=== PATIENT | female | born 1935 | race African-American/Black ===

== ENCOUNTER 2019-05-29 19:58 | Emergency (ER) | payer MEDICARE ==
[~2019-05-29] VITALS: Ht 167.6 cm; Wt 91.0 kg
[2019-05-29 20:01] VITALS: BP 138/72
== END 2019-05-29 20:23 | disposition left against medical advice (07) ==
LOC: ER 19:58
DX: Z53.21 Procedure and treatment not carried out due to patient leaving prior to being seen by health care provider (principal)

== ENCOUNTER 2019-08-14 17:30 | Inpatient (IN) | payer MEDICARE, BC ==
[~2019-08-14] VITALS: Ht 162.6 cm; Wt 90.7 kg
[2019-08-14 18:52] LABS: BASOPHILS % 1.2 % (0.0-2.0); EOSINOPHILS % 3.1 % (0.0-5.0); HEMATOCRIT. 39.4 % (36.0-48.0); HEMOGLOBIN. 13.3 g/dL (12.0-16.0); LYMPHOCYTES % 22.7 % (20.0-50.0); MEAN CORPUSCULAR HEMOGLOBIN 29.2 pg (28.0-32.0); MEAN CORPUSCULAR VOLUME 86.4 fL (81.0-99.0); MEAN PLATELET VOLUME 8.3 fl (7.4-10.4); MONOCYTES % 10.2 % (2.0-8.0); NEUTROPHILS % 62.8 % (40.0-76.0); PLATELET 266 x1000/uL (130-400); RED BLOOD CELL COUNT 4.56 mill/uL (4.2-5.4); RED CELL DISTRIBUTION WIDTH 14.5 % (11.6-14.6)
[2019-08-14 18:58] LABS: CHLORIDE 100 mEq/L (98-107)
[2019-08-14] MEDS ORDERED: SODIUM CHLORIDE 0.9% 1,000 ML IV ONE (19:00)
[2019-08-14] MEDS ORDERED: LEVETIRACETAM 500MG PREMIX 100 ML IV ONE (19:00)
[2019-08-14 19:02] LABS: ETHANOL BLOOD < 10 mg/dL
[2019-08-14 19:33] LABS: T4 FREE 0.78 ng/dL (0.76-1.46)
[2019-08-14] MEDS: POTASSIUM CHLORIDE 20MEQ TABLET SR PO NR ×2 (20:19→21:41)
[2019-08-14 21:22] LABS: CLARITY URINE CLEAR (CLEAR); COLOR URINE YELLOW (YELLOW); KETONES URINE NEGATIVE (NEGATIVE); LEUKOCYTE ESTERASE URINE NEGATIVE (NEGATIVE); NITRITE URINE NEGATIVE (NEGATIVE); OCCULT BLOOD URINE NEGATIVE (NEGATIVE); PROTEIN URINE NEGATIVE (NEGATIVE); SPECIFIC GRAVITY URINE 1.014 (1.005-1.030); UROBILINOGEN URINE 0.2 E.U./dL (0.2-1.0)
[2019-08-14 21:33] LABS: CANNABINOID URINE SCREEN NEGATIVE (NEGATIVE); METHADONE URINE SCREEN NEGATIVE (NEGATIVE); OPIATES URINE SCREEN NEGATIVE (NEGATIVE); PHENCYCLIDINE URINE SCREEN NEGATIVE (NEGATIVE)
[2019-08-14 21:34] LABS: *AMPHETAMINES SCREEN URINE NEGATIVE (NEGATIVE); *BARBITURATES SCREEN URINE NEGATIVE (NEGATIVE); *BENZODIAZEPINES SCREEN URINE NEGATIVE (NEGATIVE); *COCAINE SCREEN URINE NEGATIVE (NEGATIVE)
[2019-08-14] MEDS ORDERED: ACETAMINOPHEN 325MG TABLET PO PRN (21:45)
[2019-08-14] MEDS ORDERED: CLONIDINE 0.1MG TABLET PO PRN (21:45)
[2019-08-14] MEDS ORDERED: DOCUSATE SODIUM 100MG CAPSULE PO PRN (21:45)
[2019-08-14] MEDS ORDERED: LORAZEPAM 2MG/ML CPJ IV PRN (21:45)
[2019-08-14] MEDS ORDERED: IPRATROPIUM/ALBUTEROL 0.5-3(2.5)MG/3ML NEB NEB PRN (21:45)
[2019-08-14] MEDS ORDERED: ONDANSETRON HCL 4MG/2ML INJ IV PRN (21:45)
[2019-08-15 00:30] VITALS: BP 141/60
[2019-08-15 01:09] LABS: CREATINE KINASE 85 IU/L (26-192)
[2019-08-15 01:10] LABS: CREATINE KINASE MB FRACTION 1.3 ng/mL (0.5-3.6)
[2019-08-15 04:00] VITALS: BP 114/50
[2019-08-15] MEDS ORDERED: LOSA1TAB40 PO (05:08)
[2019-08-15] MEDS ORDERED: BUPR300T52 PO (05:08)
[2019-08-15] MEDS ORDERED: LEVO50TA PO (05:08)
[2019-08-15] MEDS ORDERED: ESOM40CA53 PO (05:08)
[2019-08-15] MEDS ORDERED: LEVO88TA2 PO (05:08)
[2019-08-15 06:42] LABS: BASOPHILS % 0.6 % (0.0-2.0); EOSINOPHILS % 3.9 % (0.0-5.0); HEMOGLOBIN. 10.9 g/dL (12.0-16.0); LYMPHOCYTES % 23.3 % (20.0-50.0); MEAN CORPUSCULAR HEMOGLOBIN 28.7 pg (28.0-32.0); MEAN CORPUSCULAR VOLUME 86.4 fL (81.0-99.0); MEAN PLATELET VOLUME 8.6 fl (7.4-10.4); MONOCYTES % 11.6 % (2.0-8.0); NEUTROPHILS % 60.6 % (40.0-76.0); PLATELET 217 x1000/uL (130-400); RED BLOOD CELL COUNT 3.82 mill/uL (4.2-5.4); RED CELL DISTRIBUTION WIDTH 14.6 % (11.6-14.6)
[2019-08-15 08:00] VITALS: BP 132/76
[2019-08-15] MEDS: LEVETIRACETAM 500MG TABLET PO SCH ×2 (09:13→22:04)
[2019-08-15] MEDS: HYDROCODONE/ACETAMINOPHEN 5/325MG TABLET PO PRN ×2 (09:14→11:06)
[2019-08-15 09:21] LABS: LDL CHOLESTEROL 85 mg/dL (5-100)
[2019-08-15 09:23] LABS: CREATINE KINASE 80 IU/L (26-192); HDL CHOLESTEROL 73 mg/dL (40-59)
[2019-08-15 09:24] LABS: CREATINE KINASE MB FRACTION 1.2 ng/mL (0.5-3.6)
[2019-08-15 12:13] VITALS: BP 141/62
[2019-08-15 16:01] VITALS: BP 137/68
[2019-08-15] MEDS ORDERED: ESTR0.3T3 MT (19:39)
[2019-08-15] MEDS ORDERED: ESCI10TA MT (19:40)
[2019-08-15] MEDS ORDERED: ASPI-1158 MT (19:41)
[2019-08-15] MEDS ORDERED: P20 MT (19:42)
[2019-08-15] MEDS ORDERED: CHOL200059 MT (19:43)
[2019-08-15 20:00] VITALS: BP 127/71
[2019-08-15 20:47] LABS: *AMPHETAMINES SCREEN URINE NEGATIVE (NEGATIVE); *BARBITURATES SCREEN URINE NEGATIVE (NEGATIVE); *BENZODIAZEPINES SCREEN URINE NEGATIVE (NEGATIVE); *COCAINE SCREEN URINE NEGATIVE (NEGATIVE); METHADONE URINE SCREEN NEGATIVE (NEGATIVE); OPIATES URINE SCREEN NEGATIVE (NEGATIVE)
[2019-08-15 20:48] LABS: CANNABINOID URINE SCREEN NEGATIVE (NEGATIVE); PHENCYCLIDINE URINE SCREEN NEGATIVE (NEGATIVE)
[2019-08-16] VITALS: BP 135/56
[2019-08-16 04:00] VITALS: BP 148/52
[2019-08-16 08:00] VITALS: BP 120/53
[2019-08-16] MEDS: BUPROPION HCL 150MG TABLET XL 24HR PO SCH (08:41)
[2019-08-16] MEDS: LEVOTHYROXINE SODIUM 50MCG TABLET PO SCH (08:41)
[2019-08-16] MEDS: LEVETIRACETAM 500MG TABLET PO SCH ×2 (08:41→20:38)
[2019-08-16] MEDS: LOSARTAN POTASSIUM 100 MG TABLET PO SCH (08:41)
[2019-08-16] MEDS ORDERED: LEVOTHYROXINE SODIUM 88MCG TABLET PO SCH (09:00)
[2019-08-16 12:00] VITALS: BP_SYST 118; BP_SYST 122; BP_DIAS 60; BP_DIAS 68
[2019-08-16 16:00] VITALS: BP_SYST 144; BP_SYST 145; BP_DIAS 61; BP_DIAS 70
[2019-08-16 20:00] VITALS: BP_SYST 149; BP_SYST 184; BP_SYST 186; BP_DIAS 60; BP_DIAS 74
[2019-08-17] VITALS: BP 142/62
[2019-08-17 04:00] VITALS: BP 129/58
[2019-08-17 06:48] LABS: PHOSPHORUS 3.3 mg/dL (2.5-4.9)
[2019-08-17 06:55] LABS: BASOPHILS % 0.7 % (0.0-2.0); EOSINOPHILS % 4.1 % (0.0-5.0); HEMOGLOBIN. 10.9 g/dL (12.0-16.0); LYMPHOCYTES % 25.8 % (20.0-50.0); MEAN CORPUSCULAR HEMOGLOBIN 28.5 pg (28.0-32.0); MEAN CORPUSCULAR VOLUME 86.2 fL (81.0-99.0); MEAN PLATELET VOLUME 8.5 fl (7.4-10.4); MONOCYTES % 12.4 % (2.0-8.0); PLATELET 232 x1000/uL (130-400); RED BLOOD CELL COUNT 3.83 mill/uL (4.2-5.4); RED CELL DISTRIBUTION WIDTH 14.6 % (11.6-14.6)
[2019-08-17 08:00] VITALS: BP 139/49
[2019-08-17] MEDS: BUPROPION HCL 150MG TABLET XL 24HR PO SCH (08:43)
[2019-08-17] MEDS: LEVOTHYROXINE SODIUM 50MCG TABLET PO SCH (08:44)
[2019-08-17] MEDS: LOSARTAN POTASSIUM 100 MG TABLET PO SCH (08:44)
[2019-08-17] MEDS: LEVETIRACETAM 500MG TABLET PO SCH (08:44)
[2019-08-17 09:10] LABS: MICROALBUMIN RANDOM URINE <3.0 ug/mL (Not Estab.)
[2019-08-17 09:10] LABS: IMMUNOGLOBULIN A 398 mg/dL (64-422); IMMUNOGLOBULIN G 1236 mg/dL (700-1600); IMMUNOGLOBULIN M 103 mg/dL (26-217)
[2019-08-17] MEDS ORDERED: HYDROCHLOROTHIAZIDE 12.5MG CAPSULE PO SCH (10:42)
[2019-08-17 12:00] VITALS: BP_SYST 146; BP_SYST 152; BP_SYST 154; BP_DIAS 58; BP_DIAS 61; BP_DIAS 65
[2019-08-17] MEDS ORDERED: KEPP500 PO (15:22)
[2019-08-17 15:35] VITALS: BP 145/71
[2019-08-18] MEDS ORDERED: LOSARTAN POTASSIUM 100 MG TABLET PO SCH (09:00)
[2019-08-19 15:11] LABS: A/G RATIO 0.9 (0.7-1.7); ALPHA-1-GLOBULIN 0.2 g/dL (0.0-0.4); ALPHA-2-GLOBULIN 0.7 g/dL (0.4-1.0); BETA GLOBULIN 1.2 g/dL (0.7-1.3); GAMMA GLOBULINS 1.2 g/dL (0.4-1.8); GLOBULIN TOTAL 3.3 g/dL (2.2-3.9); M-SPIKE Not Observed g/dL (Not Observed); TOTAL PROTEIN SERUM 6.3 g/dL (6.0-8.5)
== END 2019-08-17 16:18 | disposition home or self-care (01) | DRG 100 ==
LOC: ER 17:30 → 7WST 20:34 → ENRESERV 22:47
PROVIDERS: ADMIT Internal Medicine; ATTEND Internal Medicine
PROC: 4A00X4Z Measurement of Central Nervous Electrical Activity, External Approach (ICD-10-PCS; principal; 2019-08-15)
DX: G40.89 Other seizures (principal); N17.0 Acute kidney failure with tubular necrosis; J84.9 Interstitial pulmonary disease, unspecified; D64.9 Anemia, unspecified; E03.9 Hypothyroidism, unspecified; E11.22 Type 2 diabetes mellitus with diabetic chronic kidney disease; E66.9 Obesity, unspecified; E78.00 Pure hypercholesterolemia, unspecified; E78.5 Hyperlipidemia, unspecified; I12.9 Hypertensive chronic kidney disease with stage 1 through stage 4 chronic kidney disease, or unspecified chronic kidney disease; I27.20 Pulmonary hypertension, unspecified; Z96.643 Presence of artificial hip joint, bilateral; M19.90 Unspecified osteoarthritis, unspecified site; I45.10 Unspecified right bundle-branch block; R55 Syncope and collapse; J44.9 Chronic obstructive pulmonary disease, unspecified; N18.3 Chronic kidney disease, stage 3 (moderate); Z86.73 Personal history of transient ischemic attack (TIA), and cerebral infarction without residual deficits; Z90.710 Acquired absence of both cervix and uterus; Z88.8 Allergy status to other drugs, medicaments and biological substances; Z79.899 Other long term (current) drug therapy; Z68.34 Body mass index [BMI] 34.0-34.9, adult
CPT/HCPCS: 36415; 70551; 71045; 76770; 80048; 80053; 80061; 80305; 80320; 81003; 82043; 82550; 82553; 82570; 82784; 82962; 83735; 84100; 84155; 84165; 84300; 84439; 84443; 84484; 85025; 86334; 93005; 93306; 93880; 93970; 96365; 99285; J1953; J7030; G0480

== ENCOUNTER 2020-07-21 03:22 | Inpatient (IN) | payer MEDICARE, BC ==
[~2020-07-21] VITALS: Ht 165.1 cm; Wt 101.6 kg
[~2020-07-21 03:22] MED LIST: ASPI-1406 MT; BUPR300T52 PO; CHOL200059 MT; ESCI10TA MT; ESOM40CA53 PO; ESTR0.3T3 MT; KEPP500 PO; LEVO50TA PO; LOSA1TAB40 PO
[2020-07-21] MEDS ORDERED: ONDANSETRON HCL 4MG/2ML INJ IV ONE (04:15)
[2020-07-21] MEDS ORDERED: MORPHINE SULFATE 4 MG/ML CPJ (NOT FOR IM USE) IV ONE (04:15)
[2020-07-21] MEDS ORDERED: FENTANYL CITRATE/PF 50MCG/ML 2ML VIAL IV ONE (05:45)
[2020-07-21] MEDS ORDERED: SODIUM CHLORIDE 0.9% 1,000 ML IV ONE (05:45)
[2020-07-21 06:21] LABS: BASOPHILS % 1.5 % (0.0-2.0); EOSINOPHILS % 0.1 % (0.0-5.0); HEMATOCRIT. 35.1 % (36.0-48.0); HEMOGLOBIN. 11.8 g/dL (12.0-16.0); LYMPHOCYTES % 8.9 % (20.0-50.0); MEAN CORPUSCULAR HEMOGLOBIN 29.3 pg (28.0-32.0); MEAN PLATELET VOLUME 8.2 fl (7.4-10.4); MONOCYTES % 11.3 % (2.0-8.0); NEUTROPHILS % 78.2 % (40.0-76.0); PLATELET 207 x1000/uL (130-400); RED BLOOD CELL COUNT 4.04 mill/uL (4.2-5.4); RED CELL DISTRIBUTION WIDTH 14.5 % (11.6-14.6)
[2020-07-21 06:30] LABS: CHLORIDE 103 mEq/L (98-107)
[2020-07-21] MEDS ORDERED: DOCUSATE SODIUM 100MG CAPSULE PO PRN (07:00)
[2020-07-21] MEDS ORDERED: GUAIFENESIN 200MG/10ML SUGAR FREE UDC PO PRN (07:00)
[2020-07-21] MEDS ORDERED: ONDANSETRON HCL 4MG/2ML INJ IV PRN (07:00)
[2020-07-21] MEDS ORDERED: MAGNESIUM/ALUMINUM HYDROXIDE/SIMETHICONE 30ML UDC PO PRN (07:00)
[2020-07-21 07:48] LABS: PROTHROMBIN TIME 10.3 sec (9.6-11.0)
[2020-07-21] MEDS: ENOXAPARIN 40MG/0.4ML SYR SUBCUT SCH (09:00)
[2020-07-21 10:27] VITALS: BP 140/70
[2020-07-21 12:00] VITALS: BP 140/70
[2020-07-21] MEDS: HYDROCODONE/ACETAMINOPHEN 5/325MG TABLET PO PRN (13:33)
[2020-07-21] MEDS: BUPROPION HCL 150MG TABLET XL 24HR PO SCH (13:34)
[2020-07-21] MEDS: OMEPRAZOLE 20MG CAPSULE EXTENDED RELEASE PO SCH (13:34)
[2020-07-21] MEDS: LEVETIRACETAM 500MG TABLET PO SCH ×2 (13:34→22:07)
[2020-07-21] MEDS: LEVOTHYROXINE SODIUM 50MCG TABLET PO SCH (13:35)
[2020-07-21] MEDS: CHOLECALCIFEROL (D3) 1000 UNIT TABLET PO SCH (13:35)
[2020-07-21 16:00] VITALS: BP 150/67
[2020-07-21] MEDS: HYDROMORPHONE HCL/PF 2MG/ML CPJ IV PRN (16:28)
[2020-07-21] MEDS ORDERED: DEXTROSE 50% WATER 50ML SYRINGE IV PRN (19:00)
[2020-07-21] MEDS: CLONIDINE 0.1MG TABLET PO PRN (19:01)
[2020-07-21 20:00] VITALS: BP_SYST 132; BP_SYST 153; BP_DIAS 71
[2020-07-21] MEDS: DEXT 5%/0.45% NACL 1000ML 1,000 ML IV SCH (20:50)
[2020-07-22] VITALS: BP 130/63
[2020-07-22] MEDS: ACETAMINOPHEN 325MG TABLET PO PRN (01:06)
[2020-07-22] MEDS: HYDROMORPHONE HCL/PF 2MG/ML CPJ IV PRN ×2 (02:43→18:23)
[2020-07-22 04:00] VITALS: BP 101/53
[2020-07-22 06:33] LABS: CHLORIDE 103 mEq/L (98-107)
[2020-07-22 06:34] LABS: BASOPHILS % 0.3 % (0.0-2.0); LYMPHOCYTES % 10.8 % (20.0-50.0); MEAN CORPUSCULAR HEMOGLOBIN 29.4 pg (28.0-32.0); MEAN CORPUSCULAR VOLUME 88.4 fL (81.0-99.0); MEAN PLATELET VOLUME 8.7 fl (7.4-10.4); MONOCYTES % 11.8 % (2.0-8.0); NEUTROPHILS % 77.1 % (40.0-76.0); PLATELET 166 x1000/uL (130-400); RED BLOOD CELL COUNT 3.74 mill/uL (4.2-5.4)
[2020-07-22] MEDS: LEVOTHYROXINE SODIUM 50MCG TABLET PO SCH (06:35)
[2020-07-22] MEDS: OMEPRAZOLE 20MG CAPSULE EXTENDED RELEASE PO SCH (06:35)
[2020-07-22 08:00] VITALS: BP 104/64
[2020-07-22] MEDS: LEVETIRACETAM 500MG TABLET PO SCH ×2 (08:37→20:21)
[2020-07-22] MEDS: ENOXAPARIN 40MG/0.4ML SYR SUBCUT SCH (08:37)
[2020-07-22] MEDS: CHOLECALCIFEROL (D3) 1000 UNIT TABLET PO SCH (08:37)
[2020-07-22] MEDS: DEXT 5%/0.45% NACL 1000ML 1,000 ML IV SCH (10:10)
[2020-07-22] MEDS: BUPROPION HCL 150MG TABLET XL 24HR PO SCH (10:11)
[2020-07-22] MEDS: SODIUM CHLORIDE 0.9% 1,000 ML IV SCH (10:28)
[2020-07-22 16:00] VITALS: BP 94/44
[2020-07-22 20:00] VITALS: BP 88/42
[2020-07-23] VITALS: BP 99/50
[2020-07-23] MEDS: SODIUM CHLORIDE 0.9% 1,000 ML IV SCH (03:10)
[2020-07-23 04:00] VITALS: BP 128/55
[2020-07-23] MEDS: LEVOTHYROXINE SODIUM 50MCG TABLET PO SCH (05:20)
[2020-07-23 07:11] LABS: BASOPHILS % 0.6 % (0.0-2.0); HEMOGLOBIN. 11.1 g/dL (12.0-16.0); LYMPHOCYTES % 17.1 % (20.0-50.0); MEAN CORPUSCULAR HEMOGLOBIN 29.2 pg (28.0-32.0); MEAN CORPUSCULAR VOLUME 87.1 fL (81.0-99.0); MEAN PLATELET VOLUME 8.8 fl (7.4-10.4); MONOCYTES % 8.7 % (2.0-8.0); NEUTROPHILS % 73.6 % (40.0-76.0); PLATELET 161 x1000/uL (130-400); RED BLOOD CELL COUNT 3.79 mill/uL (4.2-5.4); RED CELL DISTRIBUTION WIDTH 14.7 % (11.6-14.6)
[2020-07-23 07:40] LABS: CHLORIDE 104 mEq/L (98-107)
[2020-07-23 08:00] VITALS: BP 169/57
[2020-07-23] MEDS: FAMOTIDINE 20MG TABLET PO SCH ×2 (09:00→10:33)
[2020-07-23] MEDS: BUPROPION HCL 150MG TABLET XL 24HR PO SCH ×2 (09:00→10:34)
[2020-07-23] MEDS: LEVETIRACETAM 500MG TABLET PO SCH ×3 (09:00→20:28)
[2020-07-23] MEDS: CHOLECALCIFEROL (D3) 1000 UNIT TABLET PO SCH ×2 (09:00→10:34)
[2020-07-23] MEDS: ENOXAPARIN 40MG/0.4ML SYR SUBCUT SCH ×2 (09:00→10:35)
[2020-07-23 09:59] LABS: BG CARBOXYHEMOGLOBIN 0.1 % (0.5-1.5); BG DEOXYHEMOGLOBIN 8.4 % (0.0-5.0); BG HCO3 ACT 21.4 mmol/L (22.0-26.0); BG METHEMOGLOBIN 0.3 % (0.0-1.5); BG OXYGEN SATURATION 91.6 % (92.0-98.5); BG OXYHEMOGLOBIN 91.2 % (94.0-97.0); BG PCO2 35.7 mmHg (35.0-45.0); BG PH 7.395 (7.350-7.450); BG PO2 61.9 mmHg (75.0-100.0); BG SAMPLE SITE RIGHT RADIAL; BG TOTAL HEMOGLOBIN 11.4 g/dL (12.0-18.0); BG VENT MODE NASAL CANNULA
[2020-07-23] MEDS ORDERED: CEFTRIAXONE 1 G PREMIX 50 ML IV SCH (10:30)
[2020-07-23] MEDS: ACETAMINOPHEN 325MG TABLET PO PRN (10:35)
[2020-07-23] MEDS: DEXAMETHASONE 4MG/ML 1ML VIAL IV SCH (11:40)
[2020-07-23] MEDS: HYDROMORPHONE HCL/PF 2MG/ML CPJ IV PRN ×2 (11:41→18:47)
[2020-07-23 12:00] VITALS: BP 106/70
[2020-07-23] MEDS: AZITHROMYCIN 500 MG in DEXT 5% WATER 250 ML IV SCH (13:35)
[2020-07-23] MEDS: CEFTRIAXONE 1,000 MG in DEXTROSE 5% WATER 50 ML IV SCH (13:35)
[2020-07-23 16:00] VITALS: BP 104/44
[2020-07-23 20:00] VITALS: BP 158/77
[2020-07-24] VITALS: BP 128/60
[2020-07-24 04:00] VITALS: BP 148/63
[2020-07-24] MEDS: LEVOTHYROXINE SODIUM 50MCG TABLET PO SCH (06:28)
[2020-07-24] MEDS: SODIUM CHLORIDE 0.9% 1,000 ML IV SCH ×2 (06:33→11:34)
[2020-07-24 08:00] VITALS: BP_SYST 142; BP_SYST 165; BP_DIAS 73; BP_DIAS 74
[2020-07-24] MEDS ORDERED: LIDOCAINE HCL/PF 1% 2ML VIAL ONE (09:00)
[2020-07-24] MEDS ORDERED: ACETAMINOPHEN 650MG/20.3ML UDC PO PRN (10:00)
[2020-07-24] MEDS: ENOXAPARIN 40MG/0.4ML SYR SUBCUT SCH (10:04)
[2020-07-24] MEDS: CLONIDINE 0.1MG TABLET PO PRN (10:05)
[2020-07-24] MEDS: CHOLECALCIFEROL (D3) 1000 UNIT TABLET PO SCH (10:05)
[2020-07-24] MEDS: BUPROPION HCL 150MG TABLET XL 24HR PO SCH (10:05)
[2020-07-24] MEDS: LEVETIRACETAM 500MG TABLET PO SCH ×2 (10:05→22:26)
[2020-07-24] MEDS: HYDROMORPHONE HCL/PF 2MG/ML CPJ IV PRN (10:26)
[2020-07-24] MEDS ORDERED: KETOROLAC 15MG/ML VIAL IV PRN (11:15)
[2020-07-24] MEDS: AZITHROMYCIN 500 MG in DEXT 5% WATER 250 ML IV SCH (11:34)
[2020-07-24] MEDS: FAMOTIDINE 20MG TABLET PO SCH (11:44)
[2020-07-24] MEDS: DEXAMETHASONE 4MG/ML 1ML VIAL IV SCH (11:44)
[2020-07-24 12:00] VITALS: BP 101/60
[2020-07-24] MEDS ORDERED: MORPHINE SULFATE 2 MG/ML CPJ (NOT FOR IM USE) IV PRN (12:00)
[2020-07-24] MEDS: CEFTRIAXONE 1,000 MG in DEXTROSE 5% WATER 50 ML IV SCH (14:03)
[2020-07-24 18:10] LABS: BG BASE EXCESS -3.1 mmol/L (-2.0-2.0); BG CARBOXYHEMOGLOBIN 0.4 % (0.5-1.5); BG DEOXYHEMOGLOBIN 25.4 % (0.0-5.0); BG FRACTION INSPIRED OXYGEN 100; BG HCO3 ACT 22.8 mmol/L (22.0-26.0); BG METHEMOGLOBIN 0.2 % (0.0-1.5); BG OXYGEN SATURATION 74.4 % (92.0-98.5); BG PCO2 43.9 mmHg (35.0-45.0); BG PH 7.333 (7.350-7.450); BG SAMPLE SITE RIGHT RADIAL; BG TOTAL HEMOGLOBIN 12.9 g/dL (12.0-18.0); BG VENT MODE MASK - NRB
[2020-07-24 18:55] VITALS: BP 146/78
[2020-07-24 19:03] LABS: C REACTIVE PROTEIN QUANT > 190.0 mg/L (0.0-3.0)
[2020-07-24 20:00] VITALS: BP 149/69
[2020-07-25] VITALS (7 sets, daily range): BP systolic 94–168; BP diastolic 57–82
[2020-07-25] MEDS: SODIUM CHLORIDE 0.9% 1,000 ML IV SCH ×2 (05:10→21:50)
[2020-07-25] MEDS: LEVOTHYROXINE SODIUM 50MCG TABLET PO SCH (08:46)
[2020-07-25] MEDS: BUPROPION HCL 150MG TABLET XL 24HR PO SCH (08:46)
[2020-07-25] MEDS: DEXAMETHASONE 4MG/ML 1ML VIAL IV SCH (08:46)
[2020-07-25] MEDS: CHOLECALCIFEROL (D3) 1000 UNIT TABLET PO SCH (08:46)
[2020-07-25] MEDS: ENOXAPARIN 40MG/0.4ML SYR SUBCUT SCH (08:46)
[2020-07-25] MEDS: LEVETIRACETAM 500MG TABLET PO SCH ×2 (08:46→21:00)
[2020-07-25] MEDS: FAMOTIDINE 20MG TABLET PO SCH (09:04)
[2020-07-25] MEDS: AZITHROMYCIN 500 MG in DEXT 5% WATER 250 ML IV SCH (10:44)
[2020-07-25] MEDS: HYDROCODONE/ACETAMINOPHEN 5/325MG TABLET PO PRN (10:45)
[2020-07-25] MEDS ORDERED: HYDROCODONE/ACETAMINOPHEN 5/325MG TABLET PO PRN ×2 (11:45→15:00)
[2020-07-25] MEDS: CEFTRIAXONE 1,000 MG in DEXTROSE 5% WATER 50 ML IV SCH (12:58)
[2020-07-25] MEDS: CLONIDINE 0.1MG TABLET PO PRN (13:42)
[2020-07-25] MEDS: ACETAMINOPHEN 325MG TABLET PO PRN (15:57)
[2020-07-25] MEDS ORDERED: LORAZEPAM 2MG/ML CPJ IV NR (21:41)
[2020-07-25] MEDS ORDERED: DEXAMETHASONE 10 MG/ML VIAL IV SCH (21:44)
[2020-07-25 23:05] LABS: BG BASE EXCESS -3.2 mmol/L (-2.0-2.0); BG CARBOXYHEMOGLOBIN 0.3 % (0.5-1.5); BG FRACTION INSPIRED OXYGEN 100; BG HCO3 ACT 20.8 mmol/L (22.0-26.0); BG METHEMOGLOBIN 0.2 % (0.0-1.5); BG OXYHEMOGLOBIN 95.5 % (94.0-97.0); BG PCO2 33.9 mmHg (35.0-45.0); BG PH 7.406 (7.350-7.450); BG PO2 87.6 mmHg (75.0-100.0); BG TOTAL HEMOGLOBIN 11.8 g/dL (12.0-18.0); BG TOTAL RESPIRATORY RATE 28 b/min; BG VENT MODE VENT - AC
[2020-07-25] MEDS: MIDAZOLAM HCL 100 MG in DEXT 5% WATER 80 ML IV PRN (23:24)
[2020-07-25] MEDS: FENTANYL CITRATE/PF 2,500 MCG in SODIUM CHLORIDE 0.9% 200 ML IV PRN (23:25)
[2020-07-26] VITALS (44 sets, daily range): BP systolic 111–165; BP diastolic 65–92
[2020-07-26 06:22] LABS: CHLORIDE 108 mEq/L (98-107)
[2020-07-26] MEDS: LEVOTHYROXINE SODIUM 50MCG TABLET PO SCH (07:50)
[2020-07-26] MEDS ORDERED: LIDOCAINE HCL 1% 20ML VIAL (Pyxis) INJ ONE (07:54)
[2020-07-26] MEDS ORDERED: SODIUM BICARBONATE 4% (2.4MEQ) 5ML VIAL IV ONE (07:54)
[2020-07-26 08:46] LABS: HEMATOCRIT. 37.9 % (36.0-48.0); HEMOGLOBIN. 12.1 g/dL (12.0-16.0); MEAN CORPUSCULAR HEMOGLOBIN 28.3 pg (28.0-32.0); MEAN CORPUSCULAR VOLUME 88.5 fL (81.0-99.0); MEAN PLATELET VOLUME 9.2 fl (7.4-10.4); PLATELET 197 x1000/uL (130-400); RED BLOOD CELL COUNT 4.28 mill/uL (4.2-5.4); RED CELL DISTRIBUTION WIDTH 14.8 % (11.6-14.6)
[2020-07-26] MEDS: BUPROPION HCL 150MG TABLET XL 24HR PO SCH (09:00)
[2020-07-26] MEDS: DEXAMETHASONE 4MG/ML 1ML VIAL IV SCH (09:00)
[2020-07-26] MEDS: ENOXAPARIN 40MG/0.4ML SYR SUBCUT SCH (09:00)
[2020-07-26 09:45] LABS: PLATELET ESTIMATE NORMAL
[2020-07-26] MEDS: LEVETIRACETAM 500MG TABLET PO SCH ×2 (09:55→21:57)
[2020-07-26] MEDS: FAMOTIDINE 20MG TABLET PO SCH (09:55)
[2020-07-26] MEDS: CHOLECALCIFEROL (D3) 1000 UNIT TABLET PO SCH (09:55)
[2020-07-26 10:32] LABS: BG BASE EXCESS 2.8 mmol/L (-2.0-2.0); BG CARBOXYHEMOGLOBIN 0.3 % (0.5-1.5); BG DEOXYHEMOGLOBIN 1.6 % (0.0-5.0); BG FRACTION INSPIRED OXYGEN 100; BG HCO3 ACT 25.5 mmol/L (22.0-26.0); BG METHEMOGLOBIN 0.3 % (0.0-1.5); BG OXYGEN SATURATION 98.4 % (92.0-98.5); BG OXYHEMOGLOBIN 97.8 % (94.0-97.0); BG PCO2 32.3 mmHg (35.0-45.0); BG PH 7.515 (7.350-7.450); BG PO2 134.8 mmHg (75.0-100.0); BG SAMPLE SITE RIGHT RADIAL; BG TOTAL HEMOGLOBIN 10.8 g/dL (12.0-18.0); BG VENT MODE VENT - AC
[2020-07-26] MEDS: AZITHROMYCIN 500 MG in DEXT 5% WATER 250 ML IV SCH (14:06)
[2020-07-26] MEDS: PANTOPRAZOLE SODIUM 40 MG/VIAL IV SCH (14:06)
[2020-07-26] MEDS: CEFTRIAXONE 1,000 MG in DEXTROSE 5% WATER 50 ML IV SCH (14:06)
[2020-07-26] MEDS ORDERED: DEXTROSE 50% WATER 50ML SYRINGE IV PRN (16:45)
[2020-07-26] MEDS: BLOOD SUGAR DIAGNOSTIC STRIP TEST SCH (17:18)
[2020-07-26] MEDS: INSULIN LISPRO 100 UNITS/ML SUBCUT SCH ×2 (17:39→21:58)
[2020-07-26] MEDS: ACETAMINOPHEN 325MG TABLET PO PRN (21:57)
[2020-07-27] VITALS (79 sets, daily range): BP systolic 127–170; BP diastolic 66–104
[2020-07-27] MEDS: BLOOD SUGAR DIAGNOSTIC STRIP TEST SCH ×4 (01:25→17:50)
[2020-07-27 06:04] LABS: HEMATOCRIT. 33.1 % (36.0-48.0); MEAN CORPUSCULAR HEMOGLOBIN 28.7 pg (28.0-32.0); MEAN CORPUSCULAR VOLUME 86.6 fL (81.0-99.0); MEAN PLATELET VOLUME 9.1 fl (7.4-10.4); PLATELET 190 x1000/uL (130-400); RED BLOOD CELL COUNT 3.82 mill/uL (4.2-5.4); RED CELL DISTRIBUTION WIDTH 14.8 % (11.6-14.6)
[2020-07-27 06:17] LABS: CHLORIDE 110 mEq/L (98-107)
[2020-07-27 09:10] LABS: BG BASE EXCESS 3.2 mmol/L (-2.0-2.0); BG CARBOXYHEMOGLOBIN 0.3 % (0.5-1.5); BG DEOXYHEMOGLOBIN 5.3 % (0.0-5.0); BG FRACTION INSPIRED OXYGEN 80; BG HCO3 ACT 26.3 mmol/L (22.0-26.0); BG METHEMOGLOBIN 0.2 % (0.0-1.5); BG OXYGEN SATURATION 94.7 % (92.0-98.5); BG OXYHEMOGLOBIN 94.2 % (94.0-97.0); BG PCO2 34.9 mmHg (35.0-45.0); BG PH 7.495 (7.350-7.450); BG PO2 74.7 mmHg (75.0-100.0); BG SAMPLE SITE RIGHT RADIAL; BG TOTAL HEMOGLOBIN 11.6 g/dL (12.0-18.0); BG VENT MODE VENT - AC
[2020-07-27] MEDS: FAMOTIDINE 20MG TABLET PO SCH (09:28)
[2020-07-27] MEDS: LEVETIRACETAM 500MG TABLET PO SCH ×2 (09:28→21:50)
[2020-07-27] MEDS: BUPROPION HCL 150MG TABLET XL 24HR PO SCH (09:28)
[2020-07-27] MEDS: PANTOPRAZOLE SODIUM 40 MG/VIAL IV SCH (09:28)
[2020-07-27] MEDS: CHOLECALCIFEROL (D3) 1000 UNIT TABLET PO SCH (09:28)
[2020-07-27] MEDS: DEXAMETHASONE 4MG/ML 1ML VIAL IV SCH (09:28)
[2020-07-27] MEDS: LEVOTHYROXINE SODIUM 50MCG TABLET PO SCH (09:28)
[2020-07-27] MEDS: ENOXAPARIN 40MG/0.4ML SYR SUBCUT SCH (09:28)
[2020-07-27] MEDS: AZITHROMYCIN 500 MG in DEXT 5% WATER 250 ML IV SCH (11:30)
[2020-07-27] MEDS: CEFTRIAXONE 1,000 MG in DEXTROSE 5% WATER 50 ML IV SCH (11:30)
[2020-07-27] MEDS: INSULIN LISPRO 100 UNITS/ML SUBCUT SCH ×2 (12:33→17:51)
[2020-07-27 18:58] LABS: PLATELET ESTIMATE NORMAL
[2020-07-28] VITALS (93 sets, daily range): BP systolic 101–170; BP diastolic 51–95
[2020-07-28] MEDS: BLOOD SUGAR DIAGNOSTIC STRIP TEST SCH ×5 (00:11→23:55)
[2020-07-28] MEDS: INSULIN LISPRO 100 UNITS/ML SUBCUT SCH ×4 (00:15→18:07)
[2020-07-28 06:09] LABS: HEMATOCRIT. 30.1 % (36.0-48.0); HEMOGLOBIN. 9.9 g/dL (12.0-16.0); MEAN CORPUSCULAR HEMOGLOBIN 28.8 pg (28.0-32.0); MEAN CORPUSCULAR VOLUME 87.2 fL (81.0-99.0); MEAN PLATELET VOLUME 8.5 fl (7.4-10.4); PLATELET 181 x1000/uL (130-400); RED BLOOD CELL COUNT 3.45 mill/uL (4.2-5.4); RED CELL DISTRIBUTION WIDTH 14.7 % (11.6-14.6)
[2020-07-28 09:11] LABS: BG BASE EXCESS 2.2 mmol/L (-2.0-2.0); BG CARBOXYHEMOGLOBIN 0.3 % (0.5-1.5); BG DEOXYHEMOGLOBIN 2.1 % (0.0-5.0); BG FRACTION INSPIRED OXYGEN 100; BG METHEMOGLOBIN 0.3 % (0.0-1.5); BG OXYGEN SATURATION 97.9 % (92.0-98.5); BG OXYHEMOGLOBIN 97.3 % (94.0-97.0); BG PCO2 37.6 mmHg (35.0-45.0); BG PH 7.458 (7.350-7.450); BG PO2 113.8 mmHg (75.0-100.0); BG SAMPLE SITE RIGHT RADIAL; BG VENT MODE VENT - AC
[2020-07-28] MEDS: DEXAMETHASONE 4MG/ML 1ML VIAL IV SCH (09:16)
[2020-07-28] MEDS: LEVOTHYROXINE SODIUM 50MCG TABLET PO SCH (09:16)
[2020-07-28] MEDS: FAMOTIDINE 20MG TABLET PO SCH (09:16)
[2020-07-28] MEDS: LEVETIRACETAM 500MG TABLET PO SCH ×2 (09:16→20:51)
[2020-07-28] MEDS: CHOLECALCIFEROL (D3) 1000 UNIT TABLET PO SCH (09:16)
[2020-07-28] MEDS: ENOXAPARIN 40MG/0.4ML SYR SUBCUT SCH (09:17)
[2020-07-28] MEDS: FENTANYL CITRATE/PF 2,500 MCG in SODIUM CHLORIDE 0.9% 200 ML IV PRN (09:27)
[2020-07-28 20:41] LABS: PLATELET ESTIMATE NORMAL
[2020-07-29] VITALS (76 sets, daily range): BP systolic 131–168; BP diastolic 65–88
[2020-07-29] MEDS: INSULIN LISPRO 100 UNITS/ML SUBCUT SCH ×4 (00:10→17:57)
[2020-07-29] MEDS: BLOOD SUGAR DIAGNOSTIC STRIP TEST SCH ×4 (05:37→23:43)
[2020-07-29 06:13] LABS: HEMATOCRIT. 32.4 % (36.0-48.0); HEMOGLOBIN. 10.6 g/dL (12.0-16.0); MEAN CORPUSCULAR HEMOGLOBIN 28.6 pg (28.0-32.0); MEAN CORPUSCULAR VOLUME 87.6 fL (81.0-99.0); MEAN PLATELET VOLUME 8.2 fl (7.4-10.4); PLATELET 191 x1000/uL (130-400); RED CELL DISTRIBUTION WIDTH 14.8 % (11.6-14.6)
[2020-07-29 06:16] LABS: CHLORIDE 112 mEq/L (98-107)
[2020-07-29] MEDS: FENTANYL CITRATE/PF 2,500 MCG in SODIUM CHLORIDE 0.9% 200 ML IV PRN (07:30)
[2020-07-29 08:22] LABS: BG BASE EXCESS 1.5 mmol/L (-2.0-2.0); BG CARBOXYHEMOGLOBIN 0.3 % (0.5-1.5); BG DEOXYHEMOGLOBIN 8.5 % (0.0-5.0); BG FRACTION INSPIRED OXYGEN 90; BG HCO3 ACT 25.5 mmol/L (22.0-26.0); BG METHEMOGLOBIN 0.3 % (0.0-1.5); BG OXYGEN SATURATION 91.4 % (92.0-98.5); BG OXYHEMOGLOBIN 90.9 % (94.0-97.0); BG PCO2 38.3 mmHg (35.0-45.0); BG PH 7.442 (7.350-7.450); BG PO2 63.5 mmHg (75.0-100.0); BG SAMPLE SITE RIGHT RADIAL; BG TOTAL HEMOGLOBIN 11.2 g/dL (12.0-18.0); BG VENT MODE VENT - AC
[2020-07-29] MEDS: DEXAMETHASONE 4MG/ML 1ML VIAL IV SCH (08:27)
[2020-07-29] MEDS: LEVOTHYROXINE SODIUM 50MCG TABLET PO SCH (08:27)
[2020-07-29] MEDS: CHOLECALCIFEROL (D3) 1000 UNIT TABLET PO SCH (08:27)
[2020-07-29] MEDS: FAMOTIDINE 20MG TABLET PO SCH (08:27)
[2020-07-29] MEDS: LEVETIRACETAM 500MG TABLET PO SCH ×2 (08:27→20:50)
[2020-07-29] MEDS: ENOXAPARIN 40MG/0.4ML SYR SUBCUT SCH (08:28)
[2020-07-29 11:56] LABS: PLATELET ESTIMATE NORMAL
[2020-07-30] VITALS (81 sets, daily range): BP systolic 75–195; BP diastolic 41–154
[2020-07-30] MEDS: INSULIN LISPRO 100 UNITS/ML SUBCUT SCH ×4 (00:50→17:38)
[2020-07-30] MEDS: FENTANYL CITRATE/PF 2,500 MCG in SODIUM CHLORIDE 0.9% 200 ML IV PRN ×2 (02:39→15:12)
[2020-07-30 06:07] LABS: HEMATOCRIT. 33.8 % (36.0-48.0); MEAN CORPUSCULAR HEMOGLOBIN 28.6 pg (28.0-32.0); MEAN CORPUSCULAR VOLUME 87.8 fL (81.0-99.0); MEAN PLATELET VOLUME 8.4 fl (7.4-10.4); PLATELET 186 x1000/uL (130-400); RED BLOOD CELL COUNT 3.85 mill/uL (4.2-5.4); RED CELL DISTRIBUTION WIDTH 14.8 % (11.6-14.6)
[2020-07-30] MEDS: BLOOD SUGAR DIAGNOSTIC STRIP TEST SCH ×3 (06:24→17:37)
[2020-07-30] MEDS: LEVOTHYROXINE SODIUM 50MCG TABLET PO SCH (07:59)
[2020-07-30] MEDS: FAMOTIDINE 20MG TABLET PO SCH (08:01)
[2020-07-30] MEDS: LEVETIRACETAM 500MG TABLET PO SCH (08:01)
[2020-07-30] MEDS: CHOLECALCIFEROL (D3) 1000 UNIT TABLET PO SCH (08:01)
[2020-07-30] MEDS: DEXAMETHASONE 4MG/ML 1ML VIAL IV SCH (08:02)
[2020-07-30] MEDS: ENOXAPARIN 40MG/0.4ML SYR SUBCUT SCH (08:02)
[2020-07-30 08:14] LABS: PLATELET ESTIMATE NORMAL
[2020-07-30 08:43] LABS: BG BASE EXCESS 1.3 mmol/L (-2.0-2.0); BG CARBOXYHEMOGLOBIN 0.3 % (0.5-1.5); BG DEOXYHEMOGLOBIN 1.2 % (0.0-5.0); BG FRACTION INSPIRED OXYGEN 90; BG METHEMOGLOBIN 0.3 % (0.0-1.5); BG OXYGEN SATURATION 98.8 % (92.0-98.5); BG OXYHEMOGLOBIN 98.2 % (94.0-97.0); BG PCO2 41.6 mmHg (35.0-45.0); BG PH 7.414 (7.350-7.450); BG PO2 171.1 mmHg (75.0-100.0); BG SAMPLE SITE RIGHT RADIAL; BG TOTAL HEMOGLOBIN 11.3 g/dL (12.0-18.0); BG VENT MODE VENT - AC
[2020-07-30] MEDS: LORAZEPAM 2MG/ML CPJ IV PRN ×2 (10:51→15:12)
[2020-07-30] MEDS ORDERED: PHENYLEPHRINE 100 MG in DEXT 5% WATER 240 ML IV PRN (11:45)
[2020-07-30] MEDS: MIDAZOLAM HCL 100 MG in DEXT 5% WATER 80 ML IV PRN (15:36)
[2020-07-30] MEDS ORDERED: LEVETIRACETAM 500MG TABLET PO SCH (21:00)
[2020-07-30] MEDS: LEVETIRACETAM 1,000 MG in SODIUM CHLORIDE 0.9% 100 ML IV SCH (21:11)
[2020-07-30] MEDS: ACETAMINOPHEN 325MG TABLET PO PRN (22:17)
[2020-07-31] VITALS (95 sets, daily range): BP systolic 68–166; BP diastolic 34–98
[2020-07-31 01:07] LABS: BG BASE EXCESS -0.8 mmol/L (-2.0-2.0); BG CARBOXYHEMOGLOBIN 0.2 % (0.5-1.5); BG FRACTION INSPIRED OXYGEN 100; BG HCO3 ACT 24.8 mmol/L (22.0-26.0); BG METHEMOGLOBIN 0.3 % (0.0-1.5); BG OXYGEN SATURATION 81.9 % (92.0-98.5); BG OXYHEMOGLOBIN 81.5 % (94.0-97.0); BG PCO2 45.2 mmHg (35.0-45.0); BG PH 7.358 (7.350-7.450); BG PO2 48.9 mmHg (75.0-100.0); BG SAMPLE SITE LEFT RADIAL; BG TOTAL HEMOGLOBIN 11.4 g/dL (12.0-18.0); BG VENT MODE VENT - AC
[2020-07-31] MEDS ORDERED: MIDAZOLAM HCL 100 MG in DEXT 5% WATER 80 ML IV PRN (04:00)
[2020-07-31] MEDS ORDERED: FENTANYL CITRATE/PF 2,500 MCG in SODIUM CHLORIDE 0.9% 200 ML IV PRN (04:00)
[2020-07-31] MEDS: FENTANYL CITRATE/PF 2,500 MCG in SODIUM CHLORIDE 0.9% 200 ML IV PRN (04:43)
[2020-07-31] MEDS: MIDAZOLAM HCL 100 MG in DEXT 5% WATER 80 ML IV PRN (04:46)
[2020-07-31] MEDS ORDERED: NOREPINEPHRINE 32 MG in DEXT 5% WATER 218 ML IV PRN (06:00)
[2020-07-31] MEDS: INSULIN LISPRO 100 UNITS/ML SUBCUT SCH ×4 (06:00→17:21)
[2020-07-31] MEDS: BLOOD SUGAR DIAGNOSTIC STRIP TEST SCH ×4 (06:00→17:22)
[2020-07-31 06:27] LABS: HEMATOCRIT. 32.4 % (36.0-48.0); HEMOGLOBIN. 10.4 g/dL (12.0-16.0); MEAN CORPUSCULAR HEMOGLOBIN 28.4 pg (28.0-32.0); MEAN CORPUSCULAR VOLUME 88.9 fL (81.0-99.0); MEAN PLATELET VOLUME 8.8 fl (7.4-10.4); PLATELET 172 x1000/uL (130-400); RED BLOOD CELL COUNT 3.65 mill/uL (4.2-5.4); RED CELL DISTRIBUTION WIDTH 15.1 % (11.6-14.6)
[2020-07-31] MEDS: FAMOTIDINE 20MG TABLET PO SCH (09:27)
[2020-07-31] MEDS: LEVOTHYROXINE SODIUM 50MCG TABLET PO SCH (09:27)
[2020-07-31] MEDS: CHOLECALCIFEROL (D3) 1000 UNIT TABLET PO SCH (09:27)
[2020-07-31] MEDS: LEVETIRACETAM 1,000 MG in SODIUM CHLORIDE 0.9% 100 ML IV SCH (09:28)
[2020-07-31 10:45] LABS: BG BASE EXCESS -2.2 mmol/L (-2.0-2.0); BG CARBOXYHEMOGLOBIN 0.1 % (0.5-1.5); BG DEOXYHEMOGLOBIN 6.7 % (0.0-5.0); BG HCO3 ACT 23.5 mmol/L (22.0-26.0); BG METHEMOGLOBIN 0.2 % (0.0-1.5); BG OXYGEN SATURATION 93.3 % (92.0-98.5); BG PCO2 44.3 mmHg (35.0-45.0); BG PH 7.343 (7.350-7.450); BG PO2 73.8 mmHg (75.0-100.0); BG SAMPLE SITE RIGHT RADIAL; BG VENT MODE VENT - AC
[2020-07-31] MEDS: SODIUM CHLORIDE 0.45% 1,000 ML IV SCH (11:39)
[2020-07-31] MEDS: ENOXAPARIN 40MG/0.4ML SYR SUBCUT SCH (11:39)
[2020-07-31] MEDS ORDERED: SODIUM POLYSTYRENE SULFONATE 15 G/60 ML BOT PO SCH (12:00)
[2020-07-31 13:45] LABS: NUCLEATED RED BLOOD CELLS 1 /100 WBC; PLATELET ESTIMATE NORMAL
[2020-07-31] MEDS: DEXAMETHASONE 4MG/ML 1ML VIAL IV SCH (15:43)
[2020-07-31] MEDS: LORAZEPAM 2MG/ML CPJ IV PRN ×3 (17:25→22:30)
[2020-07-31] MEDS: LEVETIRACETAM 1000MG PREMIX 100 ML IV SCH (22:44)
[2020-08-01] VITALS (98 sets, daily range): BP systolic 90–187; BP diastolic 49–100
[2020-08-01] MEDS: INSULIN LISPRO 100 UNITS/ML SUBCUT SCH ×5 (01:18→17:28)
[2020-08-01] MEDS: MIDAZOLAM HCL 100 MG in DEXT 5% WATER 80 ML IV PRN (01:52)
[2020-08-01] MEDS: FENTANYL CITRATE/PF 2,500 MCG in SODIUM CHLORIDE 0.9% 200 ML IV PRN (01:52)
[2020-08-01] MEDS: SODIUM CHLORIDE 0.45% 1,000 ML IV SCH ×2 (03:23→22:38)
[2020-08-01] MEDS: BLOOD SUGAR DIAGNOSTIC STRIP TEST SCH ×4 (06:15→17:15)
[2020-08-01] MEDS: LEVOTHYROXINE SODIUM 50MCG TABLET PO SCH (08:43)
[2020-08-01] MEDS: CHOLECALCIFEROL (D3) 1000 UNIT TABLET PO SCH (08:43)
[2020-08-01] MEDS: DEXAMETHASONE 4MG/ML 1ML VIAL IV SCH (08:43)
[2020-08-01] MEDS: FAMOTIDINE 20MG TABLET PO SCH (08:43)
[2020-08-01] MEDS ORDERED: ENOXAPARIN 30MG/0.3ML SYR SUBCUT SCH (09:00)
[2020-08-01 10:16] LABS: BG BASE EXCESS -3.3 mmol/L (-2.0-2.0); BG CARBOXYHEMOGLOBIN 0.3 % (0.5-1.5); BG DEOXYHEMOGLOBIN 7.2 % (0.0-5.0); BG FRACTION INSPIRED OXYGEN 100; BG HCO3 ACT 22.5 mmol/L (22.0-26.0); BG METHEMOGLOBIN 0.1 % (0.0-1.5); BG OXYGEN SATURATION 92.8 % (92.0-98.5); BG OXYHEMOGLOBIN 92.4 % (94.0-97.0); BG PCO2 43.4 mmHg (35.0-45.0); BG PH 7.332 (7.350-7.450); BG PO2 72.5 mmHg (75.0-100.0); BG SAMPLE SITE LEFT RADIAL; BG TOTAL HEMOGLOBIN 10.4 g/dL (12.0-18.0); BG TOTAL RESPIRATORY RATE 22 b/min; BG VENT MODE VENT - AC
[2020-08-01] MEDS: LEVETIRACETAM 1000MG PREMIX 100 ML IV SCH ×2 (12:10→22:38)
[2020-08-01] MEDS: CLONIDINE 0.1MG TABLET PO PRN (17:55)
[2020-08-02] VITALS (81 sets, daily range): BP systolic 135–177; BP diastolic 68–96
[2020-08-02] MEDS: CLONIDINE 0.1MG TABLET PO PRN ×2 (00:50→05:52)
[2020-08-02] MEDS: INSULIN LISPRO 100 UNITS/ML SUBCUT SCH ×4 (00:51→16:55)
[2020-08-02] MEDS: FENTANYL CITRATE/PF 2,500 MCG in SODIUM CHLORIDE 0.9% 200 ML IV PRN (00:54)
[2020-08-02] MEDS: BLOOD SUGAR DIAGNOSTIC STRIP TEST SCH ×4 (05:52→16:39)
[2020-08-02 08:26] LABS: BG BASE EXCESS -0.7 mmol/L (-2.0-2.0); BG CARBOXYHEMOGLOBIN 0.3 % (0.5-1.5); BG DEOXYHEMOGLOBIN 3.2 % (0.0-5.0); BG FRACTION INSPIRED OXYGEN 100; BG HCO3 ACT 24.6 mmol/L (22.0-26.0); BG METHEMOGLOBIN 0.3 % (0.0-1.5); BG OXYGEN SATURATION 96.8 % (92.0-98.5); BG OXYHEMOGLOBIN 96.2 % (94.0-97.0); BG PCO2 43.6 mmHg (35.0-45.0); BG PO2 96.6 mmHg (75.0-100.0); BG SAMPLE SITE RIGHT RADIAL; BG VENT MODE VENT - AC
[2020-08-02] MEDS: FAMOTIDINE 20MG TABLET PO SCH (08:50)
[2020-08-02] MEDS: CHOLECALCIFEROL (D3) 1000 UNIT TABLET PO SCH (08:50)
[2020-08-02] MEDS: ENOXAPARIN 40MG/0.4ML SYR SUBCUT SCH (08:51)
[2020-08-02] MEDS: DEXAMETHASONE 4MG/ML 1ML VIAL IV SCH (08:51)
[2020-08-02] MEDS: LEVOTHYROXINE SODIUM 50MCG TABLET PO SCH (08:53)
[2020-08-02] MEDS: LEVETIRACETAM 1000MG PREMIX 100 ML IV SCH ×2 (11:16→23:54)
[2020-08-02] MEDS: METOCLOPRAMIDE HCL 10MG/2ML VIAL IV SCH ×3 (11:16→23:54)
[2020-08-02] MEDS: SODIUM CHLORIDE 0.45% 1,000 ML IV SCH (12:36)
[2020-08-03] VITALS (83 sets, daily range): BP systolic 94–188; BP diastolic 57–96
[2020-08-03] MEDS: CLONIDINE 0.1MG TABLET PO PRN ×2 (00:04→06:02)
[2020-08-03] MEDS: INSULIN LISPRO 100 UNITS/ML SUBCUT SCH ×4 (00:05→17:26)
[2020-08-03] MEDS: BLOOD SUGAR DIAGNOSTIC STRIP TEST SCH ×4 (06:00→17:26)
[2020-08-03] MEDS: SODIUM CHLORIDE 0.45% 1,000 ML IV SCH (06:02)
[2020-08-03] MEDS: METOCLOPRAMIDE HCL 10MG/2ML VIAL IV SCH ×3 (06:02→19:02)
[2020-08-03 06:03] LABS: HEMATOCRIT. 27.3 % (36.0-48.0); HEMOGLOBIN. 9.6 g/dL (12.0-16.0); MEAN CORPUSCULAR HEMOGLOBIN 31.5 pg (28.0-32.0); MEAN CORPUSCULAR VOLUME 90.1 fL (81.0-99.0); MEAN PLATELET VOLUME 9.2 fl (7.4-10.4); PLATELET 253 x1000/uL (130-400); RED BLOOD CELL COUNT 3.03 mill/uL (4.2-5.4); RED CELL DISTRIBUTION WIDTH 15.1 % (11.6-14.6)
[2020-08-03 08:37] LABS: BG BASE EXCESS -3.9 mmol/L (-2.0-2.0); BG CARBOXYHEMOGLOBIN 0.3 % (0.5-1.5); BG DEOXYHEMOGLOBIN 5.2 % (0.0-5.0); BG FRACTION INSPIRED OXYGEN 100; BG HCO3 ACT 21.3 mmol/L (22.0-26.0); BG METHEMOGLOBIN 0.3 % (0.0-1.5); BG OXYGEN SATURATION 94.8 % (92.0-98.5); BG OXYHEMOGLOBIN 94.2 % (94.0-97.0); BG PCO2 39.1 mmHg (35.0-45.0); BG PH 7.354 (7.350-7.450); BG PO2 83.9 mmHg (75.0-100.0); BG SAMPLE SITE RIGHT RADIAL; BG TOTAL HEMOGLOBIN 10.9 g/dL (12.0-18.0); BG VENT MODE VENT - AC
[2020-08-03] MEDS: ENOXAPARIN 40MG/0.4ML SYR SUBCUT SCH (08:54)
[2020-08-03] MEDS: LEVOTHYROXINE SODIUM 50MCG TABLET PO SCH (08:54)
[2020-08-03] MEDS: CHOLECALCIFEROL (D3) 1000 UNIT TABLET PO SCH (08:54)
[2020-08-03] MEDS: FAMOTIDINE 20MG TABLET PO SCH (08:54)
[2020-08-03 09:18] LABS: PLATELET ESTIMATE NORMAL
[2020-08-03] MEDS: FENTANYL CITRATE/PF 2,500 MCG in SODIUM CHLORIDE 0.9% 200 ML IV PRN (09:54)
[2020-08-03] MEDS: LEVETIRACETAM 1000MG PREMIX 100 ML IV SCH (11:22)
[2020-08-03] MEDS: LORAZEPAM 2MG/ML CPJ IV PRN ×2 (11:23→16:08)
[2020-08-03 13:38] LABS: CHLORIDE 113 mEq/L (98-107)
[2020-08-03] MEDS ORDERED: SODIUM POLYSTYRENE SULFONATE 15 G/60 ML BOT PO SCH (16:00)
[2020-08-03] MEDS ORDERED: SODIUM CHLORIDE 0.9% IV SCH (21:00)
[2020-08-03] MEDS ORDERED: LEVETIRACETAM IV SCH (21:00)
[2020-08-04] MEDS ORDERED: LEVETIRACETAM 1,250 MG in SODIUM CHLORIDE 0.9% 100 ML IV SCH (09:00)
== END 2020-08-03 20:46 | disposition expired | DRG 870 ==
LOC: ER 04:02 → 6EST 06:19 → ENRESERV 09:46 → 8WST 21:30 → CVICU 07-25 22:15
PROVIDERS: ADMIT Hospitalist; ATTEND Hospitalist
PROC: 5A12012 Performance of Cardiac Output, Single, Manual (ICD-10-PCS; 2020-07-21)
PROC: 5A09357 Assistance with Respiratory Ventilation, Less than 24 Consecutive Hours, Continuous Positive Airway Pressure (ICD-10-PCS; 2020-07-24)
PROC: 5A1955Z Respiratory Ventilation, Greater than 96 Consecutive Hours (ICD-10-PCS; principal; 2020-07-25)
PROC: 0BH18EZ Insertion of Endotracheal Airway into Trachea, Via Natural or Artificial Opening Endoscopic (ICD-10-PCS; 2020-07-25)
PROC: 05HY33Z Insertion of Infusion Device into Upper Vein, Percutaneous Approach (ICD-10-PCS; 2020-07-28)
PROC: B54MZZA Ultrasonography of Right Upper Extremity Veins, Guidance (ICD-10-PCS; 2020-07-28)
PROC: 05HY33Z Insertion of Infusion Device into Upper Vein, Percutaneous Approach (ICD-10-PCS; 2020-07-29)
PROC: B543ZZA Ultrasonography of Right Jugular Veins, Guidance (ICD-10-PCS; 2020-07-29)
DX: A41.89 Other specified sepsis (principal); U07.1 COVID-19; J12.82 Pneumonia due to coronavirus disease 2019; G92 Toxic encephalopathy; K72.00 Acute and subacute hepatic failure without coma; N17.0 Acute kidney failure with tubular necrosis; J96.01 Acute respiratory failure with hypoxia; E44.0 Moderate protein-calorie malnutrition; G93.1 Anoxic brain damage, not elsewhere classified; D68.69 Other thrombophilia; I82.611 Acute embolism and thrombosis of superficial veins of right upper extremity; I82.622 Acute embolism and thrombosis of deep veins of left upper extremity; S82.851A Displaced trimalleolar fracture of right lower leg, initial encounter for closed fracture; N18.9 Chronic kidney disease, unspecified; E11.22 Type 2 diabetes mellitus with diabetic chronic kidney disease; I12.9 Hypertensive chronic kidney disease with stage 1 through stage 4 chronic kidney disease, or unspecified chronic kidney disease; B97.89 Other viral agents as the cause of diseases classified elsewhere; E03.9 Hypothyroidism, unspecified; I46.9 Cardiac arrest, cause unspecified; R56.9 Unspecified convulsions; Z66 Do not resuscitate; W18.39XA Other fall on same level, initial encounter; F32.9 Major depressive disorder, single episode, unspecified; Z77.22 Contact with and (suspected) exposure to environmental tobacco smoke (acute) (chronic); Z79.890 Hormone replacement therapy; Z79.899 Other long term (current) drug therapy; Z88.8 Allergy status to other drugs, medicaments and biological substances; Z79.82 Long term (current) use of aspirin; Y93.89 Activity, other specified; Y92.89 Other specified places as the place of occurrence of the external cause; Y99.8 Other external cause status; Z68.37 Body mass index [BMI] 37.0-37.9, adult
CPT/HCPCS: 36415; 36600; 71045; 73610; 76937; 80048; 80053; 82375; 82728; 82805; 82962; 83615; 83880; 85025; 85379; 86140; 87426; 87635; 93005; 93970; 94002; 94003; 94660; 96374; 99285; A6261; C1725; C1893; C9113; J0456; J0696; J1100; J1170; J1650; J1815; J1953; J2060; J2250; J2270; J2370; J2405; J2765; J3010; J3490; J7030; J7040; J7050; J7060; A4315